=== PATIENT | male | born 1945 | race Caucasian/White ===

== ENCOUNTER 2025-04-07 14:49 | Emergency (ER) | payer OTHER ==
[~2025-04-07] VITALS: Ht 167.6 cm; Wt 81.7 kg
[2025-04-07] MEDS ORDERED: Isosorbide Mono30 MG PO (15:40)
[2025-04-07] MEDS ORDERED: SERT50 PO (15:40)
[2025-04-07] MEDS ORDERED: LISI10 PO (15:40)
[2025-04-07] MEDS ORDERED: LEVE500 PO (15:40)
[2025-04-07] MEDS ORDERED: PANT20 PO (15:40)
[2025-04-07 15:41] LABS: BASOPHILS ABSOLUTE AUTO 0.04 K/mm3 (0.00-0.23); BASOPHILS PERCENT AUTO 1 % (0-2); EOSINOPHILS ABSOLUTE AUTO 0.26 K/mm3 (0.00-0.68); EOSINOPHILS PERCENT AUTO 3 % (0-6); Hematocrit 35.9 % (37.0-53.0); Hemoglobin 11.7 g/dL (13.5-17.5); IMMATURE GRAN ABSOLUTE AUTO 0.01 K/mm3 (0.00-0.10); IMMATURE GRAN PERCENT AUTO 0 % (0-1); LYMPHOCYTES ABSOLUTE AUTO 1.69 K/mm3 (0.84-5.20); LYMPHOCYTES PERCENT AUTO 21 % (21-46); MONOCYTES ABSOLUTE AUTO 0.76 K/mm3 (0.16-1.47); MONOCYTES PERCENT AUTO 9 % (4-13); Mean Corpuscular HGB Conc 32.6 g/dL (31.5-36.5); Mean Corpuscular Volume 99 fL (80-100); NEUTROPHILS ABSOLUTE AUTO 5.42 K/mm3 (1.96-9.15); NEUTROPHILS PERCENT AUTO 66 % (41-73); NRBC ABSOLUTE 0.00 K/mm3 (0.00-0.02); NRBC Auto 0.0 /100 WBC (0.0-0.2); Platelet Count 204 K/mm3 (150-400); RDW Coefficient Variation 14.3 % (11.7-14.2); RDW Standard Deviation 50.5 fL (35.1-46.3)
[2025-04-07] MEDS ORDERED: SENNA LAXATIVE8.6 MG (15:41)
[2025-04-07] MEDS ORDERED: MIRALAX11910 PO (15:41)
[2025-04-07] MEDS ORDERED: Calcium Acetat667 MG (15:41)
[2025-04-07] MEDS ORDERED: ATOR40TA PO (15:41)
[2025-04-07] MEDS ORDERED: CARV3.125 PO (15:41)
[2025-04-07] MEDS ORDERED: SODBIC650 PO (15:41)
[2025-04-07] MEDS ORDERED: CLOP75 PO (15:43)
[2025-04-07] MEDS ORDERED: ELIQUIS5 M2 PO (15:43)
[2025-04-07] MEDS ORDERED: AMLO5 PO (15:43)
[2025-04-07] MEDS ORDERED: ALFUZOSIN HCL10 MG PO (15:43)
[2025-04-07] MEDS ORDERED: FINA5 PO (15:44)
[2025-04-07] MEDS ORDERED: [UNRECOGNIZED DRUG - OTHER] PO (15:44)
[2025-04-07] MEDS ORDERED: GABA300 PO (15:44)
[2025-04-07] MEDS ORDERED: IRON EC324 MG PO (15:44)
[2025-04-07 16:02] LABS: Alanine Aminotransfer (ALT/SGP 20.0 U/L (12-78); Albumin, Blood 3.9 g/dL (3.4-5.0); Albumin/Globulin Ratio 0.9 (0.8-1.8); Anion Gap 10.0 mmol/L (3-11); Aspartate Aminotrans (AST/SGOT 14.0 U/L (12-37); Bilirubin, Total 0.4 mg/dL (0.1-1.0); Blood Urea Nitrogen 18.0 mg/dL (8-24); CO2, Blood 30.0 mmol/L (21-32); Calcium, Blood 9.5 mg/dL (8.5-10.1); Chloride, Blood 96.0 mmol/L (98-108); Creatinine, Blood 3.53 mg/dL (0.60-1.20); Globulin, Blood 4.3 g/dL (2.2-4.0); Glucose, Blood 198.0 mg/dL (70-99); Potassium, Blood 3.7 mmol/L (3.5-5.5); Sodium, Blood 132.0 mmol/L (136-145); Total Protein, Blood 8.2 g/dL (6.4-8.2)
[2025-04-07] MEDS ORDERED: HYDROcodone 5-APAP 325 TAB PO ONE (19:00)
[2025-04-07] MEDS ORDERED: HYDR1TAB94 PO (19:38)
== END 2025-04-07 20:14 | disposition home or self-care (01) ==
LOC: ER 14:49
PROVIDERS: Student in an Organized Health Care Education/Training Program
DX: I70.248 Atherosclerosis of native arteries of left leg with ulceration of other part of lower leg (principal); L97.829 Non-pressure chronic ulcer of other part of left lower leg with unspecified severity; I77.1 Stricture of artery; N18.4 Chronic kidney disease, stage 4 (severe); D63.1 Anemia in chronic kidney disease; R73.9 Hyperglycemia, unspecified; Z79.01 Long term (current) use of anticoagulants; Z79.899 Other long term (current) drug therapy; Z59.89 Other problems related to housing and economic circumstances
CPT/HCPCS: 73620; 80053; 83605; 85025; 93926; 99284-25; A9270

== ENCOUNTER 2025-04-20 09:10 | Day surgery (SDC) | payer OTHER ==
[2025-04-20] VITALS (7 sets, daily range): BP systolic 156–186; BP diastolic 78–135
[~2025-04-20] VITALS: Ht 167.6 cm; Wt 82.0 kg
[~2025-04-20 09:10] MED LIST: ALFUZOSIN HCL10 MG PO; AMLO5 PO; ATOR40TA PO; CARV3.125 PO; CLOP75 PO; Calcium Acetat667 MG; ELIQUIS5 M2 PO; FINA5 PO; GABA300 PO; HYDR1TAB94 PO; IRON EC324 MG PO; Isosorbide Mono30 MG PO; LEVE500 PO; LISI10 PO; MIRALAX11910 PO; ONDA4; PANT20 PO; PRAZ5; SENNA LAXATIVE8.6 MG; SERT50 PO; SODBIC650 PO; [UNRECOGNIZED DRUG - OTHER] PO
[2025-04-20] MEDS ORDERED: NS 1,000 ML IV ONE ×2 (09:34→10:05)
[2025-04-20] MEDS ORDERED: Heparin Sodium 1000 Units/ML 10ML MDV ONE ×2 (09:34→10:54)
[2025-04-20] MEDS ORDERED: NS 250 ML IV ONE (09:34)
[2025-04-20] MEDS ORDERED: FentaNYL Citrate 50 MCG/ML 2 ML Injection ONE (10:05)
[2025-04-20] MEDS ORDERED: Midazolam HCl 1MG / ML 2ML Vial ONE (10:05)
[2025-04-20] MEDS ORDERED: HydrALAZINE HCl 20 MG / ML 1ML Vial ONE (11:08)
[2025-04-20] MEDS ORDERED: NS 500 ML IV ONE (11:17)
--- NOTE | 2025-04-20 12:05 | NUR ---
patient arrived from cath [place];ab, awakens easily, responds appropriately. right groin site soft and nontender, no hematoma, no bleeding.
--- NOTE | 2025-04-20 13:26 | NUR ---
patient sitting up in bed eating lunch
--- NOTE | 2025-04-20 14:59 | NUR ---
patient and family verbalized understanding of discharge instructions and precautions. iv site dced with catheter intact. right groin site reviewed with family. no further questions. pt discharged via wheel chair by son-in-law
== END 2025-04-20 15:15 | disposition home or self-care (01) ==
LOC: MHTC 09:10
DX: E11.52 Type 2 diabetes mellitus with diabetic peripheral angiopathy with gangrene (principal); I70.262 Atherosclerosis of native arteries of extremities with gangrene, left leg; L97.429 Non-pressure chronic ulcer of left heel and midfoot with unspecified severity; E11.621 Type 2 diabetes mellitus with foot ulcer; I25.10 Atherosclerotic heart disease of native coronary artery without angina pectoris; N18.6 End stage renal disease; I12.0 Hypertensive chronic kidney disease with stage 5 chronic kidney disease or end stage renal disease; E11.22 Type 2 diabetes mellitus with diabetic chronic kidney disease; E78.5 Hyperlipidemia, unspecified; Z99.2 Dependence on renal dialysis; Z88.8 Allergy status to other drugs, medicaments and biological substances; Z91.018 Allergy to other foods
CPT/HCPCS: 76937; 85347; 93005; 93010; 99152; 99153; C1725; C1760; C1769; C1874; C1887; C1894; J0360; J1644; J2250; J3010; J7030; J7040; J7050; Q9967

== ENCOUNTER 2025-05-04 07:46 | Day surgery (SDC) | payer OTHER ==
[2025-05-04] VITALS (12 sets, daily range): BP systolic 126–195; BP diastolic 65–125
[~2025-05-04] VITALS: Ht 167.6 cm; Wt 82.0 kg
[~2025-05-04 07:46] MED LIST changes: +ALBU90OI INH; +LEVOTHYROXINE175 MC9 PO; -PRAZ5; +PRAZ5 PO; -[UNRECOGNIZED DRUG - OTHER] PO
[2025-05-04] MEDS ORDERED: NS 250 ML IV ONE (09:44)
[2025-05-04] MEDS ORDERED: Heparin Sodium 1000 Units/ML 10ML MDV ONE ×2 (09:44→10:04)
[2025-05-04] MEDS ORDERED: NS 100 ML IV ONE ×2 (09:44→11:07)
[2025-05-04] MEDS ORDERED: NS 1,000 ML IV ONE ×2 (09:45→10:05)
[2025-05-04] MEDS ORDERED: Midazolam HCl 1MG / ML 2ML Vial ONE (10:04)
[2025-05-04] MEDS ORDERED: FentaNYL Citrate 50 MCG/ML 2 ML Injection ONE (10:04)
[2025-05-04] MEDS ORDERED: HydrALAZINE HCl 20 MG / ML 1ML Vial ONE (10:24)
[2025-05-04] MEDS ORDERED: Nitroglycerin 2 MG/20 ML BTL ONE (11:08)
--- NOTE | 2025-05-04 13:23 | NUR ---
PT RESTING COMFORTABLY. L FEMORAL SITE REMAINS C/D/I. NO BLEEDING OR HEMATOMA NOTED. VSS. NADN. CALL LIGHT WITHIN REACH.
--- NOTE | 2025-05-04 14:50 | NUR ---
FAMILY AT BEDSIDE. PT AND FAMILY VERBALIZES UNDERSTANDING WRITTEN AND VERBAL INSTRUCTIONS. DENIES QUESTIONS OR CONCERNS. VSS. NADN.PT IV DC'D. CATH INTACT. PRESSURE DSG IN PLACE. PT DRESSES SELF WITH ASSISTANCE, TOLERATES WELL. PT L FEMORAL SITE REMAINS C/D/I. NO BLEEDING NOTED. PT DC TO HOME VIA FAMILY BY WC
== END 2025-05-04 14:50 | disposition home or self-care (01) ==
LOC: MHTC 07:46
DX: E11.52 Type 2 diabetes mellitus with diabetic peripheral angiopathy with gangrene (principal); E11.622 Type 2 diabetes mellitus with other skin ulcer; E11.621 Type 2 diabetes mellitus with foot ulcer; I70.262 Atherosclerosis of native arteries of extremities with gangrene, left leg; I70.221 Atherosclerosis of native arteries of extremities with rest pain, right leg; L97.429 Non-pressure chronic ulcer of left heel and midfoot with unspecified severity; I25.10 Atherosclerotic heart disease of native coronary artery without angina pectoris; N18.6 End stage renal disease; I50.9 Heart failure, unspecified; Z99.2 Dependence on renal dialysis; I13.2 Hypertensive heart and chronic kidney disease with heart failure and with stage 5 chronic kidney disease, or end stage renal disease; E11.22 Type 2 diabetes mellitus with diabetic chronic kidney disease; E78.5 Hyperlipidemia, unspecified; Z88.8 Allergy status to other drugs, medicaments and biological substances; Z91.018 Allergy to other foods
CPT/HCPCS: 76937; 99152; 99153; C1725; C1760; C1769; C1887; C1894; J0360; J1644; J2250; J3010; J7030; J7050; Q9967